=== PATIENT | male | born 1970 | race Two or more races ===

== ENCOUNTER 2020-07-09 17:09 | Emergency (ER) | payer SELFPAY ==
[~2020-07-09] VITALS: Ht 167.6 cm; Wt 94.8 kg
[2020-07-09 18:35] VITALS: BP 138/84
== END 2020-07-09 19:44 | disposition home or self-care (01) ==
LOC: ER 17:09
DX: S09.90XA Unspecified injury of head, initial encounter (principal); T14.8XXA Other injury of unspecified body region, initial encounter; S00.91XA Abrasion of unspecified part of head, initial encounter; R42 Dizziness and giddiness; X58.XXXA Exposure to other specified factors, initial encounter; Y93.89 Activity, other specified; Y92.89 Other specified places as the place of occurrence of the external cause; Y99.8 Other external cause status
CPT/HCPCS: 70450

== ENCOUNTER 2023-03-02 22:05 | Emergency (ER) | payer MEDICAID, OTHER ==
[~2023-03-02] VITALS: Ht 167.6 cm; Wt 95.9 kg
[2023-03-02 22:43] VITALS: BP 135/74; RESP 18; TEMP 97.2; O2SAT 97
[2023-03-03] MEDS ORDERED: NIRM1TAB PO (00:55)
[2023-03-03 01:19] VITALS: PULSE 75
== END 2023-03-03 02:53 | disposition home or self-care (01) ==
LOC: ER 22:05
DX: U07.1 COVID-19 (principal)